=== PATIENT | female | born 1990 | race Caucasian/White ===

== ENCOUNTER → 2016-08-04 | Outpatient (CLI) | payer OTHER ==
--- NOTE | 2016-08-04 08:59 | Discharge Instructions ---
Discharge Instructions Procedure Procedure Date: Aug 04, 2016. Reason for visit: Left Mass. Discharge Discharge Date: Aug 04, 2016. Discharge Diagnosis: status post breast biopsy Instructions Activity Recommendations: Additional Limitations (see below) Return to School/Work: no limitations Recommended Home Diet: No Limitations Provider Instructions: ACTIVITY RECOMMENDATIONS: * No lifting, pushing, pulling or exercising the affected side for three days. RETURN TO SCHOOL/WORK: * You may return to work/school after the procedure, but do not perform any strenuous activities for 24 to 48 hours. MEDICATIONS: * Tylenol (two 325 mg) every four to six hours if needed for mild pain (if not allergic to Tylenol). DIET: * Resume previous diet. SPECIAL CARE INSTRUCTIONS: * Keep biopsy site dry for 24 hours. May shower after 24 hours, but do not soak (bathe) incision. * May remove Tegaderm (plastic patch) tomorrow AFTER showering. * Leave the steri-strips on for one week. Allow the steri-strips to fall off by themselves. If not off after one week, you may remove them. You may place a Bandaid crosswise over the strips, if desired. * Apply ice 10 minutes on and 10 minutes off as needed. * Wear a bra at bedtime to sleep more comfortably for 2-3 days. * Your referring physician should have the results after approximately 5 to 7 business days. * Call for unusual bleeding, fever, drainage, etc or if you have any questions call during normal business hours or after hours call Dr Keller, . FOLLOW UP VISIT: Follow-up with Referring Physician as scheduled. Janis Mantilla Recommendations: Call your doctor if: * Temperature above 101 degrees * Pain not relieved by pain medicine ordered * There is increased drainage or redness from any incision * You have any unanswered questions or concerns. Your Doctors Instructions noted above were prepared by provider Caroline Keller. Patient Signature Section: Patient Instructions Signature Page Kailee Andrelex Patient (or Guardian) Signature/Date: I have read and understand the instructions given to me by my caregivers. Caregiver/RN/Doctor Signature/Date: The above-named patient and/or guardian has received patient instructions on this date. + Original Patient Signature Page (only) stays with chart. Please make copy for patient.
--- NOTE | 2016-08-04 12:25 | MAMMOGRAPHY REPORT ---
THIS REPORT HAS BEEN AMENDED. ULTRASOUND GUIDED BIOPSY LEFT BREAST: 08/04/2016 CLINICAL HISTORY: Left subareolar breast mass. PATIENT CONSENT: The procedure, risks and benefits were discussed with the patient and informed writ ten consent was obtained. A timeout was performed immediately prior to the procedure. PROCEDURE DESCRIPTION: With ultrasound guidance, aseptic technique, and lidocaine as the local anest hetic (1% lidocaine to anesthetize the skin and 1% lidocaine with epinephrine to anesthetize the onel per tissues), the mass of concern was sampled 3 times with a 14-gauge Achieve biopsy needle. Immedi ately thereafter, with ultrasound guidance, aseptic technique, and lidocaine as the local anesthetic , a metallic localizer clip was placed at the biopsy site. Direct pressure was applied to the site immediately post procedure and hemostasis was achieved. The patient tolerated the procedure without complication. She was given wound care instructions. The specimens were sent to pathology for anal ysis. COMPARISON: Comparison is made to exam dated: 07/21/2016 ultrasound - [facility]. IMPRESSION: ULTRASOUND GUIDED BIOPSY Ultrasound guided core needle biopsy of the left upper inner quadrant subareolar breast mass, with c lip placement. The patient will receive pathology results from her referring provider. Caroline Keller M.D. ah/:08/04/2016 09:00:23 [employer]: Caroline Keller MD, [facility] AMENDMENT: 08/09/2016 Caroline Keller M.D. The pathology from ultrasound-guided biopsy of the left subareolar breast mass was reviewed on 017. The pathology shows benign breast tissue, which is concordant with the imaging findings. Gume mmend clinical follow-up.
== END | disposition home or self-care (01) ==
LOC: C.MAMM 08:23
PROVIDERS: ATTEND Obstetrics & Gynecology
DX: N63 Unspecified lump in breast (principal)

== ENCOUNTER → 2017-11-08 | Outpatient (CLI) | payer OTHER ==
--- NOTE | 2017-11-08 07:28 | DIAGNOSTIC IMAGING REPORT ---
ABDOMEN LIMITED (US) HISTORY: 26 years-old Female RUQ ABDOMINAL PAIN acute right upper quadrant abdominal pain COMPARISON: None available TECHNIQUE: Multiple real-time sonographic images of the abdominal right upper quadrant were obtained assessing grayscale appearance and color flow FINDINGS: Imaged pancreas is unremarkable. The liver appears to be within normal limits without shadowing cholelithiasis, or intrahepatic biliary ductal dilation. The gallbladder is within normal limits without shadowing cholelithiasis, wall thickening or pericholecystic fluid. Common bile duct is normal, 3 mm. There are several punctate foci throughout the right kidney suggesting nephrolithiasis measuring up to 4 mm without hydronephrosis. IMPRESSION: 1. No cholelithiasis or sonographic evidence of acute cholecystitis. 2. No biliary ductal dilation. 3. Nonobstructing right-sided nephrolithiasis. The above report was generated using voice recognition software. It may contain grammatical, syntax or spelling errors. Electronically signed by: Msefin Hanks M.D. 11/08/2017 7:27 AM Dictated Date/Time: 11/08/2017 7:24 AM
== END | disposition home or self-care (01) ==
LOC: C.ULTR 06:35
PROVIDERS: ATTEND Physician Assistant Medical
DX: R10.11 Right upper quadrant pain (principal); N20.0 Calculus of kidney